=== PATIENT | female | born 1945 | race Caucasian/White ===

== ENCOUNTER 2023-03-09 13:47 | Outpatient (REF) | payer BC, SELFPAY ==
[2023-03-09 14:29] LABS: Hematocrit 39.3 % (37.0-47.0); Hemoglobin 12.9 g/dl (12.0-16.0); Mean Corpuscular HGB Conc 32.8 g/dl (31.0-35.0); Mean Corpuscular Volume 97.5 fL (80.0-98.0); Mean Platelet Volume 9.8 fL (9.4-12.3); Platelet Count 382 X10*3/uL (160-400); Red Blood Count 4.03 X10*6/uL (4.20-5.50); Red Cell Distribution Width 12.7 % (11.0-16.0); White Blood Count 6.2 X10*3/uL (4.8-10.8)
[2023-03-09 16:09] LABS: Alanine Aminotransferase 20 U/L (0-31); Albumin Level 3.8 g/dL (3.5-5.0); Alkaline Phosphatase 86 U/L (39-117); Anion Gap 14 (12-20); Aspartate Amino Transferase 18 U/L (5-31); Bilirubin Direct 0.1 mg/dL (0.0-0.5); Bilirubin Total 0.4 mg/dL (0.0-1.0); Blood Urea Nitrogen 9 mg/dL (9-16); Calcium 9.1 mg/dL (8.4-10.2); Carbon Dioxide 25 mmol/L (22-29); Chloride 103 mmol/L (96-108); Estimated Glomerular Filt Rate > 60; Glucose Random 118 mg/dL (60-115); Potassium 4.5 mmol/L (3.3-5.1); Sodium 137 mmol/L (135-145); Total Protein 6.5 g/dL (6.5-8.0)
[2023-03-09 16:25] LABS: Thyroid Stimulating Hormone 0.51 uIU/mL (0.32-4.0)
[2023-03-14 08:34] LABS: Levetiracetam Keppra 78.1 mcg/mL (6.0-46.0)
== END 2023-03-09 13:48 | disposition home or self-care (01) ==
LOC: HO.LAB 13:47
PROVIDERS: PCP Internal Medicine; Visit Provider Psychiatry & Neurology Neurology
DX: R63.4 Abnormal weight loss (principal); E03.9 Hypothyroidism, unspecified; G40.209 Localization-related (focal) (partial) symptomatic epilepsy and epileptic syndromes with complex partial seizures, not intractable, without status epilepticus; Z79.899 Other long term (current) drug therapy
CPT/HCPCS: 36415; 80048; 80076; 80177; 84443; 85027

== ENCOUNTER 2023-08-14 09:45 | Outpatient (AMB) | payer BC, SELFPAY ==
--- NOTE | 2023-08-14 09:46 | MHC.PC.OV ---
Vital Signs 08/14/23 09:47 Height 5 ft 6 in Weight 92 lb BMI 14.8 BP 96/50 L Blood Pressure Location Lt brachial Position Sitting Pulse 60 Pulse Source Pulse Oximeter Pulse Oximetry (%) 96 Oxygen Delivery Method Room Air Intake Visit Reasons: Re-establish Care/ Discuss Referrals Allergies No Known Allergies Allergy (Verified 08/14/23 10:05) Medication List - Last Reconciled 08/14/23 by PRASANNA Sánchez lacosamide (Vimpat) 100 mg PO BID levetiracetam Patient 750mg qam, and 1,500mg at night levothyroxine 88 mcg PO DAILY Tobacco use date assessed: 08/14/23 Fall risk assessment: 1 Fall in past year Last assessed Fall Risk: 08/14/23 Dental Screening Dental Screen Date: 08/14/23 Did you have a dental visit in the last 12 months?: Yes Did you have a dental problem in the last 6 months where you did not have access to dental care?: No Was dental information given to patient?: Patient has dentist HPI HPI Comments History of Present Illness Details 78-year-old female new [facility] Previous patient of Dr. De Los Santos last seen years ago. Past medical history significant for hypothyroid, osteoporosis, seizure disorder and pacemaker. Patient presents today with her daughter in law. Patients daughter in law reports weight loss patient reports when she saw Dr. Hill she was 97 lb in the beginning of June and at was [address] Hill reduced her levothyroxine to 88 mcg daily. Patient reports only eats 2 meals a day that consists of cereal with blueberries and the TV dinner at nighttime. Patient encouraged to eat 3 meals a day and [id number] states they are in the process or if looking into services such as Meals on wheels for patient and patient drinks 1 ensure daily. Patient currently following with Dr. Hill for history of seizures, last reported seizure 1 year ago. Patient follows with rubberizing mechanic at [facility]. Patient also reports suffered mechanical fall in June for which she suffered pelvic fractures and L3 compression fracture. Past medical history significant for osteoporosis has not had a bone density screening in many years. Bone density ordered. Colonoscopy completed [place] [address] Venegas showed fragments of tubular adenoma; referral entered for repeat colonoscopy screening. Offered referral for mammogram however patient declined mammogram screening. Tdap current administered in 2015. Patient refused flu shot. 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 Complete fasting blood work ordered [facility] Medical History (Updated 08/14/23 @ 10:44 by PRASANNA Sánchez) Blindness of left eye Multiple fractures of pelvis Compression fracture of L3 vertebra Surgical History History of permanent cardiac pacemaker placement History of rectal polypectomy History of tonsillectomy Family History (Updated 08/14/23 @ 10:13 by PRASANNA Sánchez) Father Pancreatic cancer Mother Alcoholism Son Celiac disease Social History (Updated 08/14/23 @ 10:14 by PRASANNA Sánchez) Housing: House Alcohol intake: never Patient Tobacco Use Status: Never used Tobacco Current occupational status: retired Cognitive needs: No Hearing needs: No Vision needs: No Questionnaire PHQ-9 Over the last 2 weeks, how often have you been bothered by any of the following problems? 1. Little interest or pleasure in doing things: not at all 2. Feeling down, depressed, or hopeless: not at all 3. Trouble falling or staying asleep, or sleeping too much: not at all 4. Feeling tired or having little energy: not at all 5. Poor appetite or overeating: not at all 6. Feeling bad about yourself - or that you are a failure or have let yourself or your family down: not at all 7. Trouble concentrating on things, such as reading the newspaper or watching television: not at all 8. Moving or speaking so slowly that other people could have noticed. Or the opposite - being so fidgety or restless that you have been moving around a lot more than usual: not at all 9. Thoughts that you would be better off or of hurting yourself in some way: not at all Total score: 0 Source: Developed by Drs. Nitesh Lopez, Leila Aguilar, David Lu and colleagues, with an educational misty from [employer]. Thrive Questionnaire Date Thrive assessed: 08/14/23 I am a: Patient What is your living situation today?: I have a steady place to live Within the past 12 months, did the food you bought not last and you didn't have the money to get more?: Never true Within the past 12 months, did you worry whether your food would run out before you got money to buy more?: Never true Do you have trouble paying for medicines?: No Do you have trouble getting transportation to medical appointments?: No Do you have trouble paying your heating and electricity bill?: No Do you have trouble taking care of your child, family member or friend?: No Do you have trouble with day-to-day activities such as bathing, preparing meals, shopping, managing finances, etc.?: No Are you currently unemployed and looking for a job?: No Are you interested in more education?: No Please select the resources that you would like help with: None AUDIT C Alcohol Use Questionnaire (AUDIT-C) 1. How often do you have a drink containing alcohol?: Never Total Score: 0 HUONG-7 AMB Questionnaire HUONG-7 Date HUONG - 7 assessed: 08/14/23 Feeling nervous, anxious, or on edge: 0 = Not at all Not being able to stop or control worryin = Not at all Worrying too much about different things: 0 = Not at all Trouble relaxin = Not at all Being so restless that it is hard to sit still: 0 = Not at all Becoming easily annoyed or irritable: 0 = Not at all Feeling afraid as if something awful might happen: 0 = Not at all Total HUONG-7 score (0-4 normal; 5-9 mild; 10-14 moderate; 15-21 severe): 0 Source: Developed by Drs. Nitesh Lopez, Leila Aguilar, David Lu and colleagues, with an educational misty from [employer]. Review of Systems Const Denies chills, Denies fatigue, Denies fever(s) and Denies poor appetite Eyes Denies no additional complaints ENT Reports Normal hearing present Card Denies chest pain, Denies syncope, Denies rapid heart rate and Denies dyspnea Resp Denies cough and Denies dyspnea GI Denies change in stool character, Denies constipation, Denies diarrhea, Denies nausea and Denies vomiting Denies urinary frequency, Denies dysuria and Denies urinary urgency Neuro Reports Normal hearing present, Denies confusion and Denies syncope Psych Denies confusion Endo Denies fatigue Physical exam (Primary Care) Vital Signs: Last Vital Signs Pulse 60 08/14/23 09:47 BP 96/50 L 08/14/23 09:47 Pulse Ox 96 08/14/23 09:47 Oxygen Delivery Method Room Air 08/14/23 09:47 BMI result Body Mass Index 14.8 Tobacco/Smoking Status: Tobacco use Status Tobacco use date assessed 08/14/23 08/14/23 09:58 Patient Tobacco Use Status Never used Tobacco 08/14/23 10:14 PHQ-9: PHQ-9 Score PHQ-9: Total score 0 08/14/23 10:14 Thrive Assessment: Date of Thrive Assessment Date Thrive assessed 08/14/23 08/14/23 09:58 Const General: No confusion Orientation/consciousness: No confusion HENMT Head: Yes normocephalic and Yes atraumatic Ears: external ears normal and TM's normal bilaterally General nose exam: Normal external nose present and Normal nasal mucous membranes and turbinates present Face and sinus: Yes normal facial exam and Yes sinuses nontender Mouth: moist mucous membranes Throat: Yes tonsils normal Eyes Conjunctivae: conjunctivae normal Sclerae: sclerae normal Pupils: Equal, round and reactive pupils present and Pupils normal by confrontation EOM: EOMs intact bilaterally Direct Ophthalmoscopy: normal light reflex Neck Neck: Yes no lymphadenopathy and Yes supple Thyroid: Thyroid normal Chest Chest palpation & inspection: normal inspection of the chest Resp Effort & Inspection: normal respiratory effort Auscultation: clear to auscultation bilaterally, no crackles, no rhonchi and no wheezes Cardio Rate: regular rate Rhythm: regular rhythm Heart sounds: S1 normal heart sound present and S2 normal heart sound present Peripheral pulses: dorsalis pedis present GI Inspection: Yes normal to inspection Palpation (GI): Soft to palpation, nontender and No hepatosplenomegaly present Auscultation: normoactive bowel sounds General: Yes no CVA tenderness Back/Spine/Pelvis Back: no CVA tenderness Skin General skin exam: no rashes or lesions noted Neuro General: No confusion Cranial nerves: Yes Equal, round and reactive pupils present and Yes Normal hearing present Cognition (Neuro): normal cognition Gait exam (Neuro): Normal gait present Motor exam (neuro): 5/5 motor strength present throughout Deep tendon reflexes (DTR's): Right brachioradialis reflex intensity grade: 2+, Left brachioradialis reflex intensity grade: 2+, Right patellar reflex intensity grade: 2+ and Left patellar reflex intensity grade: 2+ Extrem General: No edema Assessment and Plan Assessment & Plan (1) Osteoporosis: Code(s): M81.0 - Age-related osteoporosis without current pathological fracture Plan: Bone density screening ordered (2) Hypothyroidism: Code(s): E03.9 - Hypothyroidism, unspecified Plan: Continue on 88 mcg daily of levothyroxine. TSH ordered. (3) Seizure: Code(s): R56.9 - Unspecified convulsions Plan: Continue on current medications. Continue to follow with (4) Physical exam, annual: Code(s): Z00.00 - Encounter for general adult medical examination without abnormal findings Plan: Follow-up in 1 year (5) Malnourished: Code(s): E46 - Unspecified protein-calorie malnutrition Plan: Patient encouraged to eat 3 meals a day. Continue to supplement with Ensure. Plan Follow-up in 3 months. Orders: Orders Complete Blood Count Auto Diff Today Z13.0 - Encounter for screening for diseases of the blood and blood-forming organs and certain disorders involving the immune mechanism Lipid Panel Today Z13.220 - Encounter for screening for lipoid disorders TSH reflex Free T4 Today Z13.29 - Encounter for screening for other suspected endocrine disorder Vitamin D 25-OH Total Today Z13.21 - Encounter for screening for nutritional disorder XR DEXA axial skeleton Today M81.0 - Age-related osteoporosis without current pathological fracture Comprehensive [place]. Panel Fast Today R56.9 - Unspecified convulsions UA CC w/rflx Micro + Cult Today R56.9 - Unspecified convulsions Referrals Gastroenterology Referral Z12.11 - Encounter for screening for malignant neoplasm of colon Coding Level of Care Code New Pt Prev Care >65yr (17515) Diagnoses Osteoporosis M81.0 Hypothyroidism E03.9 Seizure R56.9 Physical exam, annual Z00.00 Malnourished E46
[2023-08-14 09:47] VITALS: BP 96/50; PULSE 60; O2SAT 96; BMI 14.8
== END 2023-08-14 10:42 | disposition home or self-care (01) ==
PROVIDERS: PCP Internal Medicine; Visit Provider Nurse Practitioner Family
DX: Z00.00 Encounter for general adult medical examination without abnormal findings (principal); R56.9 Unspecified convulsions; E46 Unspecified protein-calorie malnutrition; M81.0 Age-related osteoporosis without current pathological fracture; E03.9 Hypothyroidism, unspecified
CPT/HCPCS: 99387

== ENCOUNTER 2023-08-21 09:31 | Outpatient (REF) | payer BC, SELFPAY ==
[2023-08-21 11:24] LABS: Appearance Urine Clear; Color Urine Yellow; Glucose Urine UA Negative (Negative); Leukocyte Esterase Urine Large (3+) (Negative); Nitrite Urine Negative (Negative); PH 7.5 (5.0-9.0); UMIC TRIGGER UACC YES; Urine Blood Trace (Negative); Urine Ketones Negative (Negative); Urine Protein Negative (Neg-Trace)
[2023-08-21 11:28] LABS: Bacteria Urine None Seen (None Seen); Hyaline Casts Urine 0-2 /LPF (0-2); UACC Culture Trigger YES
[2023-08-21 11:30] LABS: MANUAL DIFF FLAG NO
[2023-08-21 11:40] LABS: Basophils Absolute Auto 0.1 X10*3/uL (0.0-0.2); Basophils Percent Auto 2.2 % (0-2); Eosinophils Absolute Auto 0.2 X10*3/uL (0.0-0.4); Eosinophils Percent Auto 4.1 % (0-4); Hematocrit 40.2 % (37.0-47.0); Hemoglobin 13.2 g/dl (12.0-16.0); Imm Gran Abs Auto 0.01 X10*3/uL (0.00-0.03); Imm Gran Pct Auto 0.2 % (0.0-0.4); Lymphocytes Absolute Auto 1.3 X10*3/uL (1.2-4.9); Lymphocytes Percent Auto 27.2 % (20-40); Mean Corpuscular HGB Conc 32.8 g/dl (31.0-35.0); Mean Corpuscular Hemoglobin 31.7 pg (27.0-33.0); Mean Corpuscular Volume 96.6 fL (80.0-98.0); Mean Platelet Volume 10.6 fL (9.4-12.3); Monocytes Absolute Auto 0.7 X10*3/uL (0.1-1.2); Neutrophils Absolute Auto 2.5 x10*3/uL (2.0-8.3); Neutrophils Percent Auto 51.3 % (45-73); Platelet Count 365 X10*3/uL (160-400); Red Blood Count 4.16 X10*6/uL (4.20-5.50); Red Cell Distribution Width 12.8 % (11.0-16.0); White Blood Count 4.9 X10*3/uL (4.8-10.8)
[2023-08-21 12:09] LABS: Alanine Aminotransferase 20 U/L (0-31); Albumin Level 3.9 g/dL (3.5-5.0); Alkaline Phosphatase 122 U/L (39-117); Anion Gap 12 (12-20); Aspartate Amino Transferase 19 U/L (5-31); Bilirubin Total 0.7 mg/dL (0.0-1.0); Blood Urea Nitrogen 10 mg/dL (9-16); Calcium 9.8 mg/dL (8.4-10.2); Carbon Dioxide 26 mmol/L (22-29); Chloride 103 mmol/L (96-108); Cholesterol 165 mg/dL (<200); Estimated Glomerular Filt Rate > 60; Glucose Fasting 100 mg/dL (60-99); HDL Cholesterol 40 mg/dL (>40); LDL Cholesterol Calculated 105 mg/dL (<100); Potassium 4.2 mmol/L (3.3-5.1); Sodium 137 mmol/L (135-145); Total Protein 7.1 g/dL (6.5-8.0); Triglycerides 101 mg/dL (<150)
[2023-08-21 12:28] LABS: TSH reflex Free T4 0.27 uIU/mL (0.32-4.0); Vitamin D 25-OH Total 32.9 ng/mL (>30)
[2023-08-21 13:07] LABS: Free T4 (Free Thyroxine) 1.21 ng/dL (0.71-1.85)
== END 2023-08-21 09:32 | disposition home or self-care (01) ==
LOC: HO.WFDLDS 09:31
PROVIDERS: Visit Provider Nurse Practitioner Family
DX: Z13.21 Encounter for screening for nutritional disorder (principal); Z13.220 Encounter for screening for lipoid disorders; Z13.0 Encounter for screening for diseases of the blood and blood-forming organs and certain disorders involving the immune mechanism; Z13.29 Encounter for screening for other suspected endocrine disorder; R56.9 Unspecified convulsions; R82.90 Unspecified abnormal findings in urine
CPT/HCPCS: 36415; 80053; 80061; 81001; 82306; 84439; 84443; 85025; 87086

== ENCOUNTER 2023-09-28 12:31 | Outpatient (REF) | payer BC, SELFPAY ==
[2023-09-28 15:13] LABS: Folate 16.1 ng/mL (> or = 4.0); Vitamin B12 322 pg/mL (200-900)
[2023-09-29 13:38] LABS: Transglutaminase IgA 194.3 U/mL
[2023-09-30 17:44] LABS: Zinc 45 mcg/dL (60-130)
[2023-10-02 12:24] LABS: Endomysial IgA Antibody Positive (Negative)
[2023-10-02 12:34] LABS: Endomysial Titer 1:10 titer (<1:5)
== END 2023-09-28 12:32 | disposition home or self-care (01) ==
LOC: HO.LAB 12:31
PROVIDERS: PCP Internal Medicine; Visit Provider Physician Assistant
DX: D12.6 Benign neoplasm of colon, unspecified (principal); R19.7 Diarrhea, unspecified; R63.4 Abnormal weight loss; Z83.79 Family history of other diseases of the digestive system
CPT/HCPCS: 36415; 82607; 82746; 84630; 86231; 86364

== ENCOUNTER 2023-09-28 12:31 | Outpatient (AMB) | payer BC, SELFPAY ==
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
[2023-09-28 12:44] VITALS: BP 102/59; PULSE 63; BMI 14.9
== END 2023-09-28 13:37 | disposition home or self-care (01) ==
PROVIDERS: PCP Internal Medicine; Visit Provider Physician Assistant
DX: D12.6 Benign neoplasm of colon, unspecified (principal); Z12.11 Encounter for screening for malignant neoplasm of colon; Z83.79 Family history of other diseases of the digestive system; R63.4 Abnormal weight loss
CPT/HCPCS: 99204

== ENCOUNTER 2023-10-21 13:10 | Outpatient (REF) | payer BC, SELFPAY ==
--- NOTE | ~2023-10-21 | MM_ITS ---
EXAMINATION: BONE DENSITOMETRY CLINICAL INDICATION: Age-related osteoporosis without current pathological fracture. COMPARISON: Baseline BD dated 12/24/2007. TECHNIQUE: Using a [employer] DXA System (software version: 13.1) manufactured by [employer], dual-energy x-ray absorptiometry was performed of the lumbar spine and left hip. The images are of good technical quality. Summary results are attached. FINDINGS: LEFT FEMUR, NECK: Current: BMD 0.525 g/cm2, Z-score -1.2, T-score -3.7, osteoporosis. Baseline: BMD 0.706 g/cm2. LEFT FEMUR, TOTAL: Current: BMD 0.503 g/cm2, Z-score -1.7, T-score -4.0, osteoporosis, 29.7% decrease from baseline (<5% change is not significant). Baseline: BMD 0.715 g/cm2. AP SPINE L1-L3 (excluding L4): The data of L1-L4 has been changed to exclude the L4 vertebral body, because degenerative sclerosis at this level may cause overestimation of lumbar spine density. Current: BMD 0.609 g/cm2, Z-score -2.2, T-score -4.7, osteoporosis, 25.8% decrease from baseline (<5% change is not significant). Baseline: BMD 0.821 g/cm2. IDENTIFIED RISK FACTORS: Menopause, osteoporosis, height loss, history of fracture (adult), low body weight, low calcium intake. HISTORY OF FRACTURE: Pelvis. MEDICATIONS: Multivitamins. MM/XR DEXA axial skeleton IMPRESSION: 1. DIAGNOSIS: Severe osteoporosis based on the lowest T-score value of -4.7 in the lumbar spine and history of fracture applying World Health Organization criteria. 2. 10-YEAR FRACTURE RISK PREDICTION, FRAX: According to the guidelines, FRAX calculation should only be performed on patients in the osteopenia bone density category. Therefore, FRAX was not performed on this patient. 3. Treatment Recommendations: NOF guidelines recommend consideration for treatment in postmenopausal women and men age 50 and older presenting with the following: -A hip or vertebral (clinical or morphometric) fracture. -T-score less than or equal to -2.5 at the femoral neck or spine after appropriate evaluation to exclude secondary causes. -Low bone mass at the hip or spine and a 10-year fracture probability by FRAX of greater than or equal to 3% for hip fracture or greater than or equal to 20% for major osteoporotic fracture based on the [place] adapted WHO algorithm. 4. Other Recommendations: All treatment decisions require clinical judgment and consideration of individual patient factors, including patient preferences, comorbidities, previous drug use, risk factors not captured in the FRAX model (e.g. frailty, falls, vitamin D deficiency, increased bone turnover, interval significant decline in bone density) and possible under or overestimation of fracture risk by FRAX. Additional medical evaluation for secondary cause of low bone mineral density may be appropriate. FUTURE SCAN RECOMMENDATION: People with diagnosed cases of osteoporosis or at high risk for fracture should have regular bone mineral density tests. For patients eligible for Medicare, routine testing is allowed once every 2 years. The testing frequency can be increased to one year for patients who have rapidly progressing disease, those who are receiving or discontinuing medical therapy to restore bone mass, or have additional risk factors.
== END 2023-10-21 13:11 | disposition home or self-care (01) ==
LOC: HO.MAMMO 13:10
PROVIDERS: PCP Nurse Practitioner Family; Visit Provider Nurse Practitioner Family
DX: Z13.820 Encounter for screening for osteoporosis (principal); M81.0 Age-related osteoporosis without current pathological fracture; Z78.0 Asymptomatic menopausal state
CPT/HCPCS: 77080

== ENCOUNTER 2023-11-09 12:18 | Outpatient (AMB) | payer BC, SELFPAY ==
[2023-11-09 12:22] VITALS: BP 85/46; PULSE 60; BMI 15.7
--- NOTE | 2023-11-09 12:22 | MHC.OFFVIS ---
Intake Vital Signs 11/09/23 12:22 Height 5 ft 6 in Weight 97 lb 0.054 oz BMI 15.7 BP 85/46 L Blood Pressure Location Lt brachial Position Sitting Pulse 60 Intake Visit Reasons: 1 month follow up Intake Note: Richa presents in 1 month follow up of labs and to discuss colonoscopy screening. CC: Patient denies having any GI symptoms today. Compensation And Benefits Analyst Required: No Allergies No Known Allergies Allergy (Verified 11/09/23 12:25) Medication List - Last Reconciled 11/09/23 by Kathleen Tolentino PA-C bisacodyl (Dulcolax (bisacodyl)) 20 mg (4 x 5 mg) PO ONCE 1 day lacosamide 100 mg PO ONCE levetiracetam 750 mg PO DAILY levothyroxine 75 mcg PO DAILY polyethylene glycol 3350 (Miralax) 238 grams PO ONCE 1 day HPI HPI Comments History of Present Illness Details Son present- he says she does not follow through- A 78-year-old depressed, thin, female seen last month had presented with weight loss, memory loss, poor appetite accompanied by her son She had another son that had with complications from celiac disease per her report= has well as a son that has celiac disease We had begun her on mirtazapine in hopes that would help with depression as well as with weight- She DID NOT-take it. labs have been done- celiac markers elevated, discussed with patient schedule her for EGD colonoscopy. Patient unfortunately canceled. Lyn11/02/23- seen by cardiology-Honey Sprague-okay to have colonoscopy A she says that her appetite is still not great-she does live alone her son lives next door however she is alone at mealtime Her bowels normal she has not had any issues She does admit to some memory loss however denies depression She has no nausea, vomiting abdominal pain diarrhea fever chills hematemesis or hematochezia PFS Medical History Blindness of left eye Multiple fractures of pelvis Compression fracture of L3 vertebra Surgical History History of esophagogastroduodenoscopy (EGD) Hx of colonoscopy History of permanent cardiac pacemaker placement History of rectal polypectomy History of tonsillectomy Family History (Updated 09/28/23 @ 13:13 by Kathleen Tolentino PA-C) Father Pancreatic cancer Mother Alcoholism Son Celiac disease Social History Housing: House Alcohol intake: never Patient Tobacco Use Status: Never used Tobacco Current occupational status: retired Cognitive needs: No Hearing needs: No Vision needs: No Review of Systems Const Details: All systems reviewed are negative All systems reviewed & are unremarkable except as noted in HPI and below Card Denies chest pain and Denies dyspnea Resp Denies dyspnea GI Denies abdominal pain, Denies nausea and Denies vomiting Psych Denies anxiety and Denies depression Physical Exam Vital Signs: Last Vital Signs Pulse 60 11/09/23 12:22 BP 85/46 L 11/09/23 12:22 BMI result Body Mass Index 15.7 Const Nutritional Appearance: underweight Orientation/consciousness: patient oriented x3 Eyes Other: os Resp Effort & Inspection: normal respiratory effort and able to speak in complete sentences Neuro General: patient oriented x3 Psych Speech and movement: Clear speech present Affect: Anxious affect present Attitude: Avoids eye contact (attititude/behavior) Thought process: Flight of ideas present Thought content: suicidality and no homicidality Results Reviewed Results Reviewed: 11/02/23 reviewed cardiology note Reviewed labs Assessment & Plan Assessment & Plan (1) Weight loss: Comment: eats very little- may likely be functional/ depression- Code(s): R63.4 - Abnormal weight loss (2) Tubular adenoma of colon: Comment: 2014 Code(s): D12.6 - Benign neoplasm of colon, unspecified Plan: Overdue for polyp surveillance colonoscopy (3) Family history of celiac disease: Comment: 2 sons 1, @ 43 Code(s): Z83.79 - Family history of other diseases of the digestive system (4) Malnourished: Comment: Depression Refused mirtazapine Code(s): E46 - Unspecified protein-calorie malnutrition Plan: Reinforced importance good nutrition Hydrated (5) Depression: Comment: of son, moved from family home, lives alone, however son next door does not seem to family julian, May benefit from psychotherapy Declined mirtazapine-was hoping to help with depression as well as weight gain Son present, not engaged-encouraged to oversee- Code(s): F32.A - Depression, unspecified Plan: Follow-up PCP depression Plan EGD/ colon-Dr. Putnam MG prep-already has it 11/02/23- seen by cardiology-Honey Sprague-okjennifer to have colonoscop Patient Instructions: 78-year-old female strong family history celiac disease, weight loss, depression-had been scheduled for urgent EGD colonoscopy however she did not follow through. Reinforced importance of follow through with EGD colonoscopy son is present there are no major barriers to understanding identify EGD and colonoscopy indications, procedure need for escort reviewed. MiraLax Gatorade prep reviewed literature given Encouraged to call with any questions concerns Coding Level of Care Code Est Pt Level 4 (62939) Diagnoses Weight loss R63.4 Tubular adenoma of colon D12.6 Family history of celiac disease Z83.79 Malnourished E46 Depression F32.A Time Spent (min) 30 Comment Son present
== END 2023-11-09 13:08 | disposition home or self-care (01) ==
PROVIDERS: PCP Internal Medicine; Visit Provider Physician Assistant
DX: R63.4 Abnormal weight loss (principal); D12.6 Benign neoplasm of colon, unspecified; Z83.79 Family history of other diseases of the digestive system; E46 Unspecified protein-calorie malnutrition; F32.A Depression, unspecified
CPT/HCPCS: 99214

== ENCOUNTER → 2023-11-09 12:18 | Outpatient (BNVA) | payer BC, SELFPAY | PROVIDERS: PCP Internal Medicine; Visit Provider Physician Assistant ==

== ENCOUNTER 2023-11-12 09:32 | Outpatient (AMB) | payer BC, SELFPAY ==
[2023-11-12 09:34] VITALS: BP 88/50; PULSE 60; O2SAT 97; BMI 15.5
--- NOTE | 2023-11-12 09:34 | MHC.PC.OV ---
Vital Signs 11/12/23 09:34 Height 5 ft 6 in Weight 96 lb 4 oz BMI 15.5 BP 88/50 L Blood Pressure Location Lt brachial Position Sitting Pulse 60 Pulse Source Pulse Oximeter Pulse Oximetry (%) 97 Oxygen Delivery Method Room Air Intake Visit Reasons: hypothyroidism follow up Commercial Truck Driver Required: No Binding End Stitcher: Present Allergies No Known Allergies Allergy (Verified 11/12/23 09:34) Medication List - Last Reconciled 11/12/23 by Marbin De Los Santos MD bisacodyl (Dulcolax (bisacodyl)) 20 mg (4 x 5 mg) PO ONCE 1 day lacosamide 100 mg PO ONCE levetiracetam 750 mg PO DAILY levothyroxine 75 mcg PO DAILY polyethylene glycol 3350 (Miralax) 238 grams PO ONCE 1 day Tobacco use date assessed: 11/12/23 Fall risk assessment: No Falls in past year Last assessed Fall Risk: 11/12/23 Dental Screening Dental Screen Date: 11/12/23 Did you have a dental visit in the last 12 months?: Yes Did you have a dental problem in the last 6 months where you did not have access to dental care?: No Was dental information given to patient?: Patient has dentist HPI hypothyroidism follow up HPI Details hypothyroidism celiac disease and Sz disorder; stable; thyroid was adjusted recently [facility] Medical History Blindness of left eye Multiple fractures of pelvis Compression fracture of L3 vertebra Surgical History History of esophagogastroduodenoscopy (EGD) Hx of colonoscopy History of permanent cardiac pacemaker placement History of rectal polypectomy History of tonsillectomy Family History Father Pancreatic cancer Mother Alcoholism Son Celiac disease Social History Housing: House Alcohol intake: never Patient Tobacco Use Status: Never used Tobacco Current occupational status: retired Cognitive needs: No Hearing needs: No Vision needs: No Questionnaire PHQ-9 Over the last 2 weeks, how often have you been bothered by any of the following problems? 1. Little interest or pleasure in doing things: not at all 2. Feeling down, depressed, or hopeless: not at all 3. Trouble falling or staying asleep, or sleeping too much: not at all 4. Feeling tired or having little energy: not at all 5. Poor appetite or overeating: not at all 6. Feeling bad about yourself - or that you are a failure or have let yourself or your family down: not at all 7. Trouble concentrating on things, such as reading the newspaper or watching television: not at all 8. Moving or speaking so slowly that other people could have noticed. Or the opposite - being so fidgety or restless that you have been moving around a lot more than usual: not at all 9. Thoughts that you would be better off or of hurting yourself in some way: not at all Total score: 0 Source: Developed by Drs. Nitesh Lopez, Leila Aguilar, David Lu and colleagues, with an educational misty from [employer]. Thrive Questionnaire Date Thrive assessed: 11/12/23 I am a: Patient What is your living situation today?: I have a steady place to live Within the past 12 months, did the food you bought not last and you didn't have the money to get more?: Never true Within the past 12 months, did you worry whether your food would run out before you got money to buy more?: Never true Do you have trouble paying for medicines?: No Do you have trouble getting transportation to medical appointments?: No Do you have trouble paying your heating and electricity bill?: No Do you have trouble taking care of your child, family member or friend?: No Do you have trouble with day-to-day activities such as bathing, preparing meals, shopping, managing finances, etc.?: No Are you currently unemployed and looking for a job?: No Are you interested in more education?: No Please select the resources that you would like help with: None AUDIT C Alcohol Use Questionnaire (AUDIT-C) 1. How often do you have a drink containing alcohol?: Never Total Score: 0 HUONG-7 AMB Questionnaire HUONG-7 Date HUONG - 7 assessed: 11/12/23 Feeling nervous, anxious, or on edge: 0 = Not at all Not being able to stop or control worryin = Not at all Worrying too much about different things: 0 = Not at all Trouble relaxin = Not at all Being so restless that it is hard to sit still: 0 = Not at all Becoming easily annoyed or irritable: 0 = Not at all Feeling afraid as if something awful might happen: 0 = Not at all Total HUONG-7 score (0-4 normal; 5-9 mild; 10-14 moderate; 15-21 severe): 0 Source: Developed by Drs. Nitesh Lopez, Leila Aguilar, David Lu and colleagues, with an educational misty from [employer]. Review of Systems Const Denies chills, Denies headache(s) and Denies weight loss ENT Denies headache(s) Card Denies chest pain, Denies syncope, Denies irregular heart rhythm and Denies dyspnea Resp Denies chest congestion, Denies cough and Denies dyspnea GI Denies abdominal pain, Denies change in stool character, Denies nausea and Denies vomiting Musc Denies deformity and Denies joint swelling Neuro Denies syncope and Denies headache(s) Physical exam (Primary Care) Vital Signs: Last Vital Signs Pulse 60 11/12/23 09:34 BP 88/50 L 11/12/23 09:34 Pulse Ox 97 11/12/23 09:34 Oxygen Delivery Method Room Air 11/12/23 09:34 BMI result Body Mass Index 15.5 Tobacco/Smoking Status: Tobacco use Status Tobacco use date assessed 11/12/23 11/12/23 09:35 Patient Tobacco Use Status Never used Tobacco 11/12/23 09:35 PHQ-9: PHQ-9 Score PHQ-9: Total score 0 11/12/23 09:35 Thrive Assessment: Date of Thrive Assessment Date Thrive assessed 11/12/23 11/12/23 09:35 Const General: cooperative, comfortable, no acute distress and alert Neck Neck: Yes no lymphadenopathy Thyroid: Thyroid normal Resp Effort & Inspection: normal respiratory effort Auscultation: clear to auscultation bilaterally Percussion: percussion normal Cardio Jugular venous distension: no JVD Palpation: normal PMI Rate: regular rate Rhythm: regular rhythm Heart sounds: S1 normal heart sound present and S2 normal heart sound present GI Inspection: Yes normal to inspection Palpation (GI): No hepatosplenomegaly present Skin General skin exam: no rashes or lesions noted Extrem General: Yes no clubbing, cyanosis or edema Assessment and Plan Assessment & Plan (1) Seizure: Code(s): R56.9 - Unspecified convulsions Plan: per neurology (2) Hypothyroidism: Code(s): E03.9 - Hypothyroidism, unspecified Plan: recheck labs (3) Celiac disease: Code(s): K90.0 - Celiac disease Plan: as per gi Orders: Orders Lipid Panel Today E78.5 - Hyperlipidemia, unspecified Thyroid Stimulating Hormone Today E03.9 - Hypothyroidism, unspecified Complete Blood Count Auto Diff Today D64.9 - Anemia, unspecified Comprehensive [place]. Panel Fast Today N28.9 - Disorder of kidney and ureter, unspecified Coding Level of Care Code Est Pt Level 4 (83964) Diagnoses Seizure R56.9 Hypothyroidism E03.9 Celiac disease K90.0
== END 2023-11-12 10:04 | disposition home or self-care (01) ==
PROVIDERS: PCP Internal Medicine; Visit Provider Internal Medicine
DX: R56.9 Unspecified convulsions (principal); E03.9 Hypothyroidism, unspecified; K90.0 Celiac disease
CPT/HCPCS: 99214

== ENCOUNTER 2023-11-20 11:39 | Outpatient (REF) | payer BC, SELFPAY ==
[2023-11-20 14:25] LABS: MANUAL DIFF FLAG NO
[2023-11-20 14:50] LABS: Basophils Absolute Auto 0.1 X10*3/uL (0.0-0.2); Basophils Percent Auto 2.5 % (0-2); Eosinophils Absolute Auto 0.2 X10*3/uL (0.0-0.4); Eosinophils Percent Auto 4.4 % (0-4); Hematocrit 39.7 % (37.0-47.0); Hemoglobin 12.8 g/dl (12.0-16.0); Imm Gran Abs Auto 0.01 X10*3/uL (0.00-0.03); Imm Gran Pct Auto 0.2 % (0.0-0.4); Lymphocytes Absolute Auto 1.3 X10*3/uL (1.2-4.9); Lymphocytes Percent Auto 24.4 % (20-40); Mean Corpuscular HGB Conc 32.2 g/dl (31.0-35.0); Mean Corpuscular Volume 99.3 fL (80.0-98.0); Monocytes Absolute Auto 0.8 X10*3/uL (0.1-1.2); Monocytes Percent Auto 15.2 % (2-11); Neutrophils Absolute Auto 2.8 x10*3/uL (2.0-8.3); Neutrophils Percent Auto 53.3 % (45-73); Platelet Count 415 X10*3/uL (160-400); Red Cell Distribution Width 13.2 % (11.0-16.0); White Blood Count 5.3 X10*3/uL (4.8-10.8)
[2023-11-20 15:16] LABS: Alanine Aminotransferase 25 U/L (0-31); Albumin Level 3.7 g/dL (3.5-5.0); Alkaline Phosphatase 87 U/L (39-117); Anion Gap 10 (12-20); Aspartate Amino Transferase 19 U/L (5-31); Bilirubin Total 0.6 mg/dL (0.0-1.0); Blood Urea Nitrogen 12 mg/dL (9-16); Calcium 9.3 mg/dL (8.4-10.2); Carbon Dioxide 30 mmol/L (22-29); Chloride 103 mmol/L (96-108); Cholesterol 175 mg/dL (<200); Estimated Glomerular Filt Rate > 60; Glucose Fasting 91 mg/dL (60-99); HDL Cholesterol 52 mg/dL (>40); LDL Cholesterol Calculated 106 mg/dL (<100); Potassium 4.4 mmol/L (3.3-5.1); Sodium 139 mmol/L (135-145); Total Protein 6.8 g/dL (6.5-8.0); Triglycerides 88 mg/dL (<150)
[2023-11-20 15:31] LABS: Thyroid Stimulating Hormone 1.08 uIU/mL (0.32-4.0)
== END 2023-11-20 11:40 | disposition home or self-care (01) ==
LOC: HO.WFDLDS 11:39
PROVIDERS: Visit Provider Internal Medicine
DX: N28.9 Disorder of kidney and ureter, unspecified (principal); E03.9 Hypothyroidism, unspecified; D64.9 Anemia, unspecified; E78.5 Hyperlipidemia, unspecified
CPT/HCPCS: 36415; 80053; 80061; 84443; 85025

== ENCOUNTER 2023-12-31 09:03 | Day surgery (SDC) | payer BC, SELFPAY ==
[2023-12-29 13:52] VITALS: BMI 15.7
--- NOTE | 2023-12-30 08:54 | P.CONAN_ITS ---
Documented by User: Melinda Marcum NP 12/30/23 08:59 HPI - Anesthesia Eval Consult details Narrative: 78yo F for Upper Endoscopy and Colonoscopy Pacer in situ [place] (SSS) Afib - declines anticoag d/t seizure ds and bleeding risk Follows [facility] cardiology. Last office visit 10/2023 [facility] Active Problems Active Problems: All Active Problems (Updated 12/29/23 @ 13:50 by Trupti Martines RN) Celiac disease (Acute) Depression (Acute) Weight loss (Acute) Family history of celiac disease (Acute) Encounter for screening colonoscopy (Acute) Tubular adenoma of colon (Acute) Malnourished (Acute) Osteoporosis (Acute) Seizure (Acute) Hypothyroidism (Acute) Past Medical History Medical History Sick sinus syndrome Paroxysmal atrial fibrillation Osteoporosis Hypothyroid Seizures Depression Blindness of left eye Multiple fractures of pelvis Compression fracture of L3 vertebra Family History Family History Father Pancreatic cancer Mother Alcoholism Son Celiac disease Surgical History Surgical History History of esophagogastroduodenoscopy (EGD) Hx of colonoscopy History of permanent cardiac pacemaker placement History of rectal polypectomy History of tonsillectomy Social History Social History Housing: House Alcohol intake: never Patient Tobacco Use Status: Never used Tobacco Use of substances other than those prescribed or required for medical reasons: No Are you DNR?: No Advance Directives: No Advance Directives Information Provided: Yes Current occupational status: retired Cognitive needs: No Hearing needs: No Vision needs: No Meds Allergies Allergy/AdvReac Type Severity Reaction Status Date / Time No Known Allergies Allergy Verified 12/31/23 09:26 Home Medications Medication Instructions Recorded Confirmed Last Taken Type lacosamide 100 mg tablet 100 mg PO BID 11/09/23 12/29/23 Unknown History levetiracetam 750 mg tablet 750 mg PO DAILY 11/09/23 12/29/23 Unknown History levetiracetam 750 mg tablet 1,500 mg PO BEDTIME 12/31/23 12/31/23 Unknown History Exam Height,Weight and Vital Signs: Height 5 ft 6 in Weight 43.998 kg Pertinent Lab Results Pertinent Lab Results: Laboratory Tests 11/20/23 11:40 WBC 5.3 Hgb 12.8 Hct 39.7 Plt Count 415 H Sodium 139 Potassium 4.4 Chloride 103 Carbon Dioxide 30 H BUN 12 Creatinine 0.58 Narrative Narrative: EKG 10/2023 A-paced rhythm Nonspecific T wave abn Pacer interr 10/2023 Nml lead and device function. Battery life 5.1 years. AP 67% and CLIENT SUPPORT REPRESENTATIVE 0.1%. AT/AF burden is <1% with 4 AMS episodes. Known PAF. Assessment and Plan Assessment Anesthesia Assessment: Chart Reviewed Documented by User: Rama Oliveira MD 12/31/23 10:03 [facility] Past Medical History Medical History Sick sinus syndrome Paroxysmal atrial fibrillation Osteoporosis Hypothyroid Seizures Depression Blindness of left eye Multiple fractures of pelvis Compression fracture of L3 vertebra Family History Family History Father Pancreatic cancer Mother Alcoholism Son Celiac disease Family history of problems with anesthesia: No Surgical History Surgical History History of esophagogastroduodenoscopy (EGD) Hx of colonoscopy History of permanent cardiac pacemaker placement History of rectal polypectomy History of tonsillectomy History of Problems with Anesthesia: No Social History Social History Housing: House Alcohol intake: never Patient Tobacco Use Status: Never used Tobacco Use of substances other than those prescribed or required for medical reasons: No Are you DNR?: No Advance Directives: No Advance Directives Information Provided: Yes Current occupational status: retired Cognitive needs: No Hearing needs: No Vision needs: No Meds Allergies Allergy/AdvReac Type Severity Reaction Status Date / Time No Known Allergies Allergy Verified 12/31/23 09:26 Home Medications Medication Instructions Recorded Confirmed Last Taken Type lacosamide 100 mg tablet 100 mg PO BID 11/09/23 12/29/23 Unknown History levetiracetam 750 mg tablet 750 mg PO DAILY 11/09/23 12/29/23 Unknown History levetiracetam 750 mg tablet 1,500 mg PO BEDTIME 12/31/23 12/31/23 Unknown History Exam Airway Mallampati Class: II TM Dist: >3cm Neck ROM: Limited Heart: afib, pacer , no spikes seen on strip Lungs: cta Assessment and Plan Assessment Anesthesia Assessment: Anesthesia Plan Discussed Final Anesthetic Review Family History of Problems with Anesthesia: No History of Problems with Anesthesia: No NPO: Yes ASA Class: III Final Preanesthetic Review: No Changes in Pt Med Stat, Meds/Allgs Chart Reviewed, Consent Obtained/Reviewed and Anes Risks/Benef Reviewed Patient Risk: Intermediate Procedure Risk: Low Anesthetic Plan Anesthetic Plan: MAC: Disposition: Standard PACU
[2023-12-31 09:24] VITALS: BMI 15.2
[2023-12-31 09:50] VITALS: BP 94/49; PULSE 67; RESP 16; TEMP 36.9; O2SAT 95
[2023-12-31] MEDS: Lactated Ringers 1,000 ML 100 ML IVCONT (10:08)
--- NOTE | 2023-12-31 10:13 | MHC.SHP ---
Pre-Procedural Eval Section A - 24 Hr Update-Section A only Date of Service: 12/31/23 Section B - Complete if H&P > 30 days Chief Complaint: benign neoplasm,hx other disease,abnormal wt loss Details of Present Illness: fh celiac disease Relevant Family History (Specify if Yes): Yes Relevant Social History: None Present Medications: see Short Stay Collaborative assessment Medical History: Significant History (Sick sinus syndrome Paroxysmal atrial fibrillation Osteoporosis Hypothyroid Seizures Depression Blindness of left eye Multiple fractures of pelvis Compression fracture of L3 vertebra) History of Previous Operations: Relevant previous surgery/procedure and date(s) (History of esophagogastroduodenoscopy (EGD) Hx of colonoscopy History of permanent cardiac pacemaker placement History of rectal polypectomy History of tonsillectomy) Allergies: Allergies Allergy/AdvReac Type Severity Reaction Status Date / Time No Known Allergies Allergy Verified 12/31/23 09:26 Review of Systems Sugical H&P ROS: Negative: Constitution, Cardiovascular, Respiratory, Neurological, Psychiatric, Hem-Onc, Allergic/Immunologic, Gastrointestinal, Genitourinary, Musculoskeletal, Integumentary, Endocrine and Eyes/Ears/Nose/Throat Exam Surgical H&P Exam: Normal: HEENT, Normal: Heart, Normal: Lungs, Normal: Extremities, Normal: Abdomen, Normal: Skin and Normal: Neurological Plan Diagnosis/Plan: Unchanged I have reviewed the history and physical and performed a pertinent physical examination on my patient. No changes have occurred unless specified. Time Spent With Patient Time: Total time managing care of this patient today ____ minutes.
--- NOTE | 2023-12-31 10:35 | W.PM.OPN ---
Operative Note Operative Note Date of Service: 12/31/23 Narrative: Operative Information Procedure Description: EGD, Colonoscopy Indication: weight loss, pos celiac Ab Anesthesia: MAC FLEXIBLE TRANSORAL UPPER GASTROINTESTINAL ENDOSCOPY AND COLONOSCOPY PROCEDURE NOTE UPPER ENDOSCOPY Consent: Indications for the procedure and potential complications of bleeding, perforation, reaction to medications and missed diagnosis were discussed with the patient and informed consent was obtained. Instrument: Olympus GIF H 190 J mid size upper endoscope Monitoring: Vital signs and clinical assessment, continuous EKG monitoring, Pulse oximetry, Carbon Dioxide monitoring and blood pressure monitoring were done throughout the procedure. Procedure: The patient was placed in the left lateral decubitis position and pre-procedure medications were administered and a bite block was placed. The endoscope was inserted into the mouth and advanced under direct vision to the third part of duodenum. A careful inspection was made as the upper endoscope was withdrawn including a retroflexed examination of the proximal stomach; Findings and interventions are described below. Findings: Larynx:normal Esophagus: GE junction at 36 cm, diaphragm hiatus at 36 cm, bogginess at GEJ, bx taken also from distal esophagus Stomach: scarring and erythema in mid and distal stomach. Biopsies were obtained. Grade 2 flap valve on retroflexed examination of the cardia. Duodenum: Bulbar duodenitis, bx taken incl for flow cytometry Intervention: Biopsies as noted above, COLONOSCOPY Instrument: Olympus variable stiffness pediatric scope 190L Colonoscopy Monitoring: Vital signs and clinical assessment, continuous EKG monitoring, Pulse oximetry, Carbon Dioxide monitoring and blood pressure monitoring were done throughout the procedure. Colon withdrawal time was 12 minutes. Procedure: The patient was placed in the left lateral decubitis position and pre-procedure medications were administered. After a digital rectal examination of the ano-rectum, the video colonoscope was inserted into the rectum and advanced through the colon to the cecum/TI. The colonoscope was slowly withdrawn in a retrograde panoramic fashion and the colon mucosa was carefully examined including a retroflexed view of the rectum. Findings and interventions are described below. Procedure Difficulty:moderate- pressure applied, v tortuous colon Findings: Terminal Ileum-normal, bx taken Random colon bx taken Cecum: 3-5 mm sessile polyps x 2 removed with cold forceps Ascending Colon: few scattered diverticula noted Transverse Colon -normal Descending Colon: scattered diverticula Sigmoid Colon: severe diverticulosis with mucosal thickening and narrowing of lumen Rectum: Retroflexion with small internal hemorrhoids, grade I Anorectum - normal Colon preparation: [place] Bowel Preparation Scale Right colon; 2 Transverse colon: 2 Left colon; 2 (0 = Unprepared colon segment with mucosa not seen due to solid stool that cannot be cleared. 1 = Portion of mucosa of the colon segment seen, but other areas of the colon segment not well seen due to staining, residual stool and/or opaque liquid. 2 = Minor amount of residual staining, small fragments of stool and/or opaque liquid, but mucosa of colon segment seen well. 3 = Entire mucosa of colon segment seen well with no residual staining, small fragments of stool or opaque liquid) Impression and Post Procedure Diagnosis: Endoscopy Findings: gastritis esophagitis duodenitis Colonoscopy Findings: diverticulosis colon polyps internal hemorrhoids Plan: Await Pathology results No further screening colonoscopy recommended due to age, High fiber diet leaflet avoid straining at stool, epsom salts and sitz bath, anusol supps or cream' if bx neg then CT A/P and chest to r/o malignancy Above findings were reviewed with the patient and relevant handouts were provided if indicated.
[2023-12-31 11:43] VITALS: BP 98/51; PULSE 60; RESP 18; TEMP 36.1; O2SAT 99
[2023-12-31 12:16] VITALS: BP 111/62; PULSE 60; RESP 16; TEMP 36.1; O2SAT 97
== END 2023-12-31 12:30 | disposition home or self-care (01) ==
PROVIDERS: PCP Internal Medicine; Visit Provider Internal Medicine Gastroenterology
PROC: (CPT 43239; principal; 2023-12-31 11:20)
DX: K29.70 Gastritis, unspecified, without bleeding (principal); K20.90 Esophagitis, unspecified without bleeding; K29.80 Duodenitis without bleeding; K22.89 Other specified disease of esophagus; R63.4 Abnormal weight loss; Z68.1 Body mass index [BMI] 19.9 or less, adult; Z12.11 Encounter for screening for malignant neoplasm of colon; K63.5 Polyp of colon; K57.30 Diverticulosis of large intestine without perforation or abscess without bleeding; K64.0 First degree hemorrhoids; K56.2 Volvulus; Z86.010 Personal history of colon polyps; Z83.79 Family history of other diseases of the digestive system; F32.A Depression, unspecified; E03.9 Hypothyroidism, unspecified; I48.0 Paroxysmal atrial fibrillation
CPT/HCPCS: 43239; 45380; 36415; 88184; 88185; 88300; 88305; 88312; 88313; 88342; J2704

== ENCOUNTER → 2023-12-31 09:03 | Outpatient (BNV) | payer BC, SELFPAY | PROVIDERS: PCP Internal Medicine; Visit Provider Internal Medicine Gastroenterology | DX: K20.90 Esophagitis, unspecified without bleeding (principal); K29.90 Gastroduodenitis, unspecified, without bleeding; K63.5 Polyp of colon; K57.90 Diverticulosis of intestine, part unspecified, without perforation or abscess without bleeding; K64.8 Other hemorrhoids | CPT/HCPCS: 43239; 45385 ==

== ENCOUNTER 2024-01-11 13:30 | Outpatient (AMB) | payer BC, SELFPAY ==
--- NOTE | 2024-01-11 13:38 | A.OFFVIS_ITS ---
Intake Vital Signs 01/11/24 13:43 Height 5 ft 6 in Weight 97 lb BMI 15.7 BP 87/51 L Blood Pressure Location Lt brachial Position Sitting Pulse 63 Intake Visit Reasons: s/p egd/colon Intake Note: Patient follow up for EGD/Colonoscopy results. Patient denies any GI issues. Purchasing Coordinator Required: No Accompanied by: Son Allergies No Known Allergies Allergy (Verified 01/11/24 13:37) HPI HPI Comments History of Present Illness Details A 79 y/o female fam hx celiac dz- f/u after EGD and colonoscopy for weight loss, she is here today with her son She admits that she does not eat much-she is depressed she is to work 3 jobs, [place] as well as the of 1 of her sons. She denies suicidal homicidal ideation Her bowels have been normal She has no nausea, vomiting hematemesis, hematochezia fever chills Reviewed procedure report, pathology and recommendation Opportunity for questions [facility] Medical History Sick sinus syndrome Paroxysmal atrial fibrillation Osteoporosis Hypothyroid Seizures Depression Blindness of left eye Multiple fractures of pelvis Compression fracture of L3 vertebra Surgical History History of esophagogastroduodenoscopy (EGD) Hx of colonoscopy History of permanent cardiac pacemaker placement History of rectal polypectomy History of tonsillectomy Family History Father Pancreatic cancer Mother Alcoholism Son Celiac disease Social History Housing: House Alcohol intake: never Patient Tobacco Use Status: Never used Tobacco Current occupational status: retired Cognitive needs: No Hearing needs: No Vision needs: No Review of Systems Const All systems reviewed & are unremarkable except as noted in HPI and below Card Denies chest pain and Denies dyspnea Resp Denies dyspnea GI Details: Not hungry Denies abdominal pain, Denies diarrhea, Denies nausea and Denies vomiting Psych Reports anxiety, Reports depression, Reports anhedonia, Denies homicidal ideation and Denies suicidal ideation Physical Exam Vital Signs: Last Vital Signs Pulse 63 01/11/24 13:43 BP 87/51 L 01/11/24 13:43 BMI result Body Mass Index 15.7 Const General: cooperative, comfortable, anxious and well groomed Nutritional Appearance: underweight Orientation/consciousness: patient oriented x3 Neuro General: patient oriented x3 Extrem General: Yes full ROM Psych Appearance: well kempt Speech and movement: Clear speech present Attitude: cooperative Thought process: Flight of ideas present Thought content: Normal thought content present Results Reviewed Results Reviewed: mpression and Post Procedure Diagnosis: Endoscopy Findings: gastritis esophagitis duodenitis Colonoscopy Findings: diverticulosis colon polyps internal hemorrhoids Plan: Await Pathology results No further screening colonoscopy recommended due to age, High fiber diet leaflet avoid straining at stool, epsom salts and sitz bath, anusol supps or cream' if bx neg then CT A/P and chest to r/o malignancy Name: Richa Zaldivar Age/Sex: 78/F Attending: Cindi Putnam MD : 1945 Submitted by: Cindi Putnam MD Copies to: Marbin De Los Santos MD MR #: [id number] Status: [facility] Collected: 12/31/23 Location: [facility] Received: 12/31/23 ADDENDUM REPORT Addendum Addendum #1 (A): Flow cytometry analysis ([employer]): Diagnosis: -Non-specific T-cell dominant profile. -Diagnostic features with B-cell lymphoproliferative disorder not seen. -No significant increase in blast-gait or [id number] events identified. See full report in the EMR - report/pathology section as a scanned report (camera icon). (C): Immunostain for H.pylori is negative with appropriate control. (F): Additional levels show colonic mucosa with lymphoid aggregates and no specific change; negative for adenomatous dysplasia. Electronically Signed By: Siria Reyes 01/05/24 1234 Diagnosis A. Duodenum, biopsy #1 for flow cytometry: Specimen sent for flow cytometry; report to follow. B. Duodenum, biopsy #2: Duodenal mucosa with predominantly preserved villi and focal features of chronic/non-specific duodenitis. C. Stomach, biopsy: Gastric body mucosa with minimal-mild chronic gastritis with rare neutrophils; negative for intestinal metaplasia and dysplasia (see comment). D. Gastroesophageal junction, biopsy: Squamocolumnar mucosa with mild chronic in flammation; negative for intestinal metaplasia and dysplasia. E. Esophagus, distal, biopsy: Squamous mucosa with no specific change; no columnar mucosa present. F. Colon, cecal polyp, biopsy: Colonic mucosa with lymphoid aggregates on initial levels (see comment). Patient: Richa Zaldivar Age/Sex: 78/F MR#: [id number] Page 1 of 3 G. Terminal ileum, biopsy: Ileal mucosa with no specific change. H. Colon, random, biopsy: Colonic mucosa with no specific change. Comment: Immunostain for H. pylori on C is pending; addendum to follow. Additional levels pending on F; addendum to follow. Clinical History Pre-Op Dx: Weight loss Post-Op Dx: Upper: gastritis, esophagitis, duodenitis; Lower: Diverticulosis, colon polyp, hemorrhoids Microscopic Description Microscopic sections reviewed. AB/PAS stain on B shows evidence of chronic injury. AB/PAS stains on C and D are negative for intestinal metaplasia. AB/PAS stain on E is negative for fungi. Controls stain appropriately. Material Received A. Duodenum bx's #1 for flow cytometry B. Duodenum bx's #2 C. Stomach bx's D. GE junction bx's E. Distal esophagus bx's F. Cecal polyp bx's G. Terminal ileum bx's H. Random colon bx's Gross Description Assessment & Plan Assessment & Plan (1) Weight loss: Comment: Extremely thin 79-year-old woman-seemingly depressed eats very little- may likely be functional/ depression-psychotherapy may be beneficial Son present-does not seem to engage-discussed mealtime, seems she is alone much of the time-he does not seem to be much involved Code(s): R63.4 - Abnormal weight loss Plan: Former smoker get chest X ray (2) Family history of celiac disease: Comment: 2 sons 1, @ 43 Code(s): Z83.79 - Family history of other diseases of the digestive system Plan: Abstain from gluten will recheck lab to compare Plan Phone Type [phone] Cell Orders: Orders XR chest 2V 01/11/24 R63.4 - Abnormal weight loss, Z87.891 - Personal history of nicotine dependence Gliadin Ab Panel 01/11/24 R63.4 - Abnormal weight loss Endomysial IgA rflx Titer 01/11/24 R63.4 - Abnormal weight loss Transglutaminase IgA 01/11/24 R63.4 - Abnormal weight loss Patient Instructions: Chest X ray Follow-up [id number] may be beneficial Will get labs to compare Coding Level of Care Code Est Pt Level 3 (82633) Diagnoses Weight loss R63.4 Family history of celiac disease Z83.79
[2024-01-11 13:43] VITALS: BP 87/51; PULSE 63; BMI 15.7
== END 2024-01-11 15:25 | disposition home or self-care (01) ==
PROVIDERS: PCP Internal Medicine; Visit Provider Physician Assistant
DX: R63.4 Abnormal weight loss (principal); Z83.79 Family history of other diseases of the digestive system
CPT/HCPCS: 99213

== ENCOUNTER 2024-01-11 13:30 | Outpatient (REF) | payer BC, SELFPAY ==
--- NOTE | ~2024-01-11 | XR_ITS ---
EXAMINATION: XR CHEST CLINICAL INFORMATION: Abnormal weight loss. COMPARISON: Chest radiograph dated 09/16/2012. TECHNIQUE: Frontal and lateral views of the chest were obtained. FINDINGS: The heart, great vessels, pulmonary vasculature and mediastinum are normal. There is atherosclerotic calcification of the aortic knob. The lungs show no infiltrate, effusion or pneumothorax. There is mild hyperinflation. No acute osseous abnormality is seen. There is a mild thoracic levoscoliosis. A dual-lead, dual-chamber pacemaker device is seen, without lead fracture noted. XR/XR chest 2V IMPRESSION: There is mild hyperinflation. No focal infiltrate or congestive heart failure is seen.
== END 2024-01-11 13:31 | disposition home or self-care (01) ==
LOC: HO.XRAY 13:30
PROVIDERS: PCP Internal Medicine; Visit Provider Physician Assistant
DX: R63.4 Abnormal weight loss (principal); Z87.891 Personal history of nicotine dependence; Z83.79 Family history of other diseases of the digestive system
CPT/HCPCS: 71046

== ENCOUNTER 2024-02-15 13:16 | Outpatient (AMB) | payer MEDICARE, BC, SELFPAY ==
[2024-02-15 13:49] VITALS: BP 100/60; PULSE 60; O2SAT 98; BMI 15.7
--- NOTE | 2024-02-15 13:49 | A.OFFPC_ITS ---
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 Service Required: No Accompanied by: Son Allergies No Known Allergies Allergy (Verified 02/15/24 13:50) Medication List - Last Reconciled 02/16/24 by Marbin De Los Santos MD lacosamide 100 mg PO BID levetiracetam 1,500 mg PO BEDTIME levetiracetam 750 mg PO DAILY levothyroxine 75 mcg PO DAILY Tobacco use date assessed: 11/12/23 Fall risk assessment: No Falls in past year Last assessed Fall Risk: 02/15/24 Dental Screening Dental Screen Date: 11/12/23 HPI 3mth f/u HPI Details hypothyroidism Sz disorder and cognitive decline; stable; compliant with meds [facility] Medical History Sick sinus syndrome Paroxysmal atrial fibrillation Osteoporosis Hypothyroid Seizures Depression Blindness of left eye Multiple fractures of pelvis Compression fracture of L3 vertebra Surgical History History of esophagogastroduodenoscopy (EGD) Hx of colonoscopy History of permanent cardiac pacemaker placement History of rectal polypectomy History of tonsillectomy Family History Father Pancreatic cancer Mother Alcoholism Son Celiac disease Social History Housing: House Alcohol intake: never Patient Tobacco Use Status: Never used Tobacco Current occupational status: retired Cognitive needs: No Hearing needs: No Vision needs: No Questionnaire Thrive Questionnaire Date Thrive assessed: 11/12/23 HUONG-7 AMB Questionnaire HUONG-7 Date HUONG - 7 assessed: 11/12/23 Source: Developed by Drs. Nitesh Lopez, Leila Aguilar, David Lu and colleagues, with an educational misty from [employer]. Review of Systems Const Denies chills, Denies headache(s) and Denies weight loss ENT Denies headache(s) Card Denies chest pain, Denies syncope, Denies irregular heart rhythm and Denies dyspnea Resp Denies chest congestion, Denies cough and Denies dyspnea GI Denies abdominal pain, Denies change in stool character, Denies nausea and Denies vomiting Musc Denies deformity and Denies joint swelling Neuro Denies syncope and Denies headache(s) Physical exam (Primary Care) Vital Signs: Last Vital Signs Pulse 60 02/15/24 13:49 BP 100/60 02/15/24 13:49 Pulse Ox 98 02/15/24 13:49 Oxygen Delivery Method Room Air 02/15/24 13:49 BMI result Body Mass Index 15.7 Tobacco/Smoking Status: Tobacco use Status Tobacco use date assessed 11/12/23 02/15/24 13:52 Patient Tobacco Use Status Never used Tobacco 02/15/24 13:52 Thrive Assessment: Date of Thrive Assessment Date Thrive assessed 11/12/23 02/15/24 13:52 Const General: cooperative, comfortable, no acute distress and alert Neck Neck: Yes no lymphadenopathy Thyroid: Thyroid normal Resp Effort & Inspection: normal respiratory effort Auscultation: clear to auscultation bilaterally Percussion: percussion normal Cardio Jugular venous distension: no JVD Palpation: normal PMI Rate: regular rate Rhythm: regular rhythm Heart sounds: S1 normal heart sound present and S2 normal heart sound present GI Inspection: Yes normal to inspection Palpation (GI): No hepatosplenomegaly present Skin General skin exam: no rashes or lesions noted Extrem General: Yes no clubbing, cyanosis or edema Assessment and Plan Assessment & Plan (1) Seizure: Code(s): R56.9 - Unspecified convulsions Plan: to see neuro (2) Hypothyroidism: Code(s): E03.9 - Hypothyroidism, unspecified Plan: same rx; needs labs (3) Cognitive decline: Code(s): R41.89 - Other symptoms and signs involving cognitive functions and awareness Plan: stable Orders: Orders Thyroid Stimulating Hormone 02/15/24 Z13.29 - Encounter for screening for other suspected endocrine disorder Coding Level of Care Code Est Pt Level 4 (99981) Diagnoses Seizure R56.9 Hypothyroidism E03.9 Cognitive decline R41.89
== END 2024-02-15 14:07 | disposition home or self-care (01) ==
LOC: HO.HMGH 13:47
PROVIDERS: PCP Internal Medicine; Visit Provider Internal Medicine
DX: R56.9 Unspecified convulsions (principal); E03.9 Hypothyroidism, unspecified; R41.89 Other symptoms and signs involving cognitive functions and awareness
CPT/HCPCS: 99214

== ENCOUNTER 2024-02-15 14:19 | Outpatient (REF) | payer BC, SELFPAY ==
[2024-02-15 15:59] LABS: TSH reflex Free T4 1.06 uIU/mL (0.32-4.0); Thyroid Stimulating Hormone 1.06 uIU/mL (0.32-4.0)
[2024-02-15 16:17] LABS: Appearance Urine Clear; Color Urine Yellow; Glucose Urine UA Negative (Negative); Leukocyte Esterase Urine Trace (Negative); Nitrite Urine Negative (Negative); PH 6.5 (5.0-9.0); Specific Gravity - Urine 1.025 (1.005-1.025); UMIC TRIGGER UACC YES; Urine Blood Negative (Negative); Urine Ketones Trace mg/dL (Negative); Urine Protein Negative (Neg-Trace)
[2024-02-15 16:50] LABS: Bacteria Urine None Seen (None Seen); Hyaline Casts Urine 0-2 /LPF (0-2); RBC Urine 0-2 /HPF (0-2); Squamous Epithelial Cell Urine 0-2 /HPF (0-2); WBC Urine 0-5 /HPF (0-5)
[2024-02-16 21:24] LABS: Gliadin Deamidated IgA Ab 72.3 U/mL; Gliadin Deamidated IgG Ab >250.0 U/mL; Transglutaminase IgA 109.1 U/mL
[2024-02-20 11:23] LABS: Endomysial IgA Antibody Positive (Negative)
[2024-02-20 11:43] LABS: Endomysial Titer 1:20 titer (<1:5)
== END 2024-02-15 14:20 | disposition home or self-care (01) ==
LOC: HO.LAB 14:19
PROVIDERS: Nurse Practitioner Family; Physician Assistant; PCP Internal Medicine; Visit Provider Internal Medicine
DX: Z13.29 Encounter for screening for other suspected endocrine disorder (principal); E03.9 Hypothyroidism, unspecified; R63.4 Abnormal weight loss
CPT/HCPCS: 36415; 81001; 84443; 86231; 86258; 86364

== ENCOUNTER 2024-08-16 13:09 | Outpatient (AMB) | payer MEDICARE, SELFPAY ==
[2024-08-16 13:15] VITALS: BP 98/60; PULSE 72; O2SAT 91; BMI 16.5
--- NOTE | 2024-08-16 13:15 | A.OFFPC_ITS ---
Vital Signs 08/16/24 13:15 Height 5 ft 6 in Weight 102 lb BMI 16.5 BP 98/60 Blood Pressure Location Lt brachial Position Sitting Pulse 72 Pulse Source Pulse Oximeter Pulse Oximetry (%) 91 L Oxygen Delivery Method Room Air Intake Visit Reasons: 6mth f/u Ophthalmic Pathologist Required: No Allergies No Known Allergies Allergy (Verified 08/16/24 13:17) Tobacco use date assessed: 11/12/23 Fall risk assessment: No Falls in past year Last assessed Fall Risk: 08/16/24 Dental Screening Dental Screen Date: 11/12/23 HPI 6mth f/u HPI Details hypothyroidism on rx; doing well; compliant [facility] Medical History Sick sinus syndrome Paroxysmal atrial fibrillation Osteoporosis Hypothyroid Seizures Depression Blindness of left eye Multiple fractures of pelvis Compression fracture of L3 vertebra Surgical History History of esophagogastroduodenoscopy (EGD) Hx of colonoscopy History of permanent cardiac pacemaker placement History of rectal polypectomy History of tonsillectomy Family History Father Pancreatic cancer Mother Alcoholism Son Celiac disease Social History Housing: House Alcohol intake: never Patient Tobacco Use Status: Never used Tobacco Tobacco use type: Cigarette e-Cigarette/Vaping Use: Never Used Current occupational status: retired Cognitive needs: No Hearing needs: No Vision needs: No Questionnaire Thrive Questionnaire Date Thrive assessed: 11/12/23 HUONG-7 AMB Questionnaire HUONG-7 Date HUONG - 7 assessed: 11/12/23 Source: Developed by Drs. Nitesh Lopez, Leila Aguilar, David Lu and colleagues, with an educational misty from [employer]. Review of Systems Const Denies chills, Denies headache(s) and Denies weight loss ENT Denies headache(s) Card Denies chest pain, Denies syncope, Denies irregular heart rhythm and Denies dyspnea Resp Denies chest congestion, Denies cough and Denies dyspnea GI Denies abdominal pain, Denies change in stool character, Denies nausea and Denies vomiting Musc Denies deformity and Denies joint swelling Neuro Denies syncope and Denies headache(s) Physical exam (Primary Care) Vital Signs: Last Vital Signs Pulse 72 08/16/24 13:15 BP 98/60 08/16/24 13:15 Pulse Ox 91 L 08/16/24 13:15 Oxygen Delivery Method Room Air 08/16/24 13:15 BMI result Body Mass Index 16.5 Tobacco/Smoking Status: Tobacco use Status Tobacco use date assessed 11/12/23 08/16/24 13:16 Patient Tobacco Use Status Never used Tobacco 08/16/24 13:16 Tobacco use type Cigarette 08/16/24 13:19 e-Cigarette/Vaping Use Never Used 08/16/24 13:19 Thrive Assessment: Date of Thrive Assessment Date Thrive assessed 11/12/23 08/16/24 13:16 Const General: cooperative, comfortable, no acute distress and alert Neck Neck: Yes no lymphadenopathy Thyroid: Thyroid normal Resp Effort & Inspection: normal respiratory effort Auscultation: clear to auscultation bilaterally Percussion: percussion normal Cardio Jugular venous distension: no JVD Palpation: normal PMI Rate: regular rate Rhythm: regular rhythm Heart sounds: S1 normal heart sound present and S2 normal heart sound present GI Inspection: Yes normal to inspection Palpation (GI): No hepatosplenomegaly present Skin General skin exam: no rashes or lesions noted Extrem General: Yes no clubbing, cyanosis or edema Coding Level of Care Code Est Pt Level 3 (72377) Diagnoses Hypothyroidism E03.9 Assessment & Plan Assessment & Plan (1) Hypothyroidism: Code(s): E03.9 - Hypothyroidism, unspecified Category: Medical Plan: stable; same rx
== END 2024-08-16 13:38 | disposition home or self-care (01) ==
PROVIDERS: PCP Internal Medicine; Visit Provider Internal Medicine
DX: E03.9 Hypothyroidism, unspecified (principal)

== ENCOUNTER → 2024-08-16 13:09 | Outpatient (BNVA) | payer MEDICARE, SELFPAY | PROVIDERS: PCP Internal Medicine; Visit Provider Internal Medicine | DX: E03.9 Hypothyroidism, unspecified (principal) | CPT/HCPCS: 99212 ==

== ENCOUNTER 2024-09-08 11:23 | Outpatient (REF) | payer MEDICARE, SELFPAY ==
[2024-09-08 13:04] LABS: Vitamin B12 389 pg/mL (200-900)
== END 2024-09-08 11:24 | disposition home or self-care (01) ==
LOC: HO.LAB 11:23
PROVIDERS: PCP Internal Medicine; Visit Provider Psychiatry & Neurology Neurology
DX: G31.84 Mild cognitive impairment of uncertain or unknown etiology (principal)
CPT/HCPCS: 36415; 82607

== ENCOUNTER 2025-01-24 13:17 | Outpatient (AMB) | payer MEDICARE, SELFPAY ==
--- NOTE | 2025-01-24 13:24 | MHC.PC.OV ---
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 Accompanied by: Son Allergies No Known Allergies Allergy (Verified 01/24/25 13:35) Medication List - Last Reconciled 01/24/25 by Clemencia Mcgrath MD aspirin 81 mg PO DAILY budesonide ER 9 mg PO DAILY 4 weeks clopidogrel 75 mg PO DAILY lacosamide 100 mg PO BID levetiracetam 1,500 mg PO BEDTIME levetiracetam 750 mg PO DAILY levothyroxine 75 mcg PO DAILY Tobacco use date assessed: 01/24/25 Fall risk assessment: 1 Fall in past year Last assessed Fall Risk: 01/24/25 Dental Screening Dental Screen Date: 01/24/25 Did you have a dental visit in the last 12 months?: No Did you have a dental problem in the last 6 months where you did not have access to dental care?: No Was dental information given to patient?: Patient has dentist HPI HPI Comments History of Present Illness Details The patient is a 80-year-old female presenting for follow-up management of seizure disorder and osteoporosis, and to address a dermatologic concern over her right eyebrow. The seizure disorder is well-controlled on current medications, levetiracetam and lacosamide, with no recent episodes noted. The seizure episodes were noted after unexplained alterations in consciousness followed by a neurological assessment. Hypothyroidism is maintained on levothyroxine, with regular monitoring of her thyroid hormone levels. She is malnourished with a BMI of 16.6. Past medical history is significant for severe osteoporosis, diagnosed through a densitometry test in September 2023. The patient suffered a left hip fracture in November 2024, requiring surgical intervention with a hip replacement. Pain was initially managed with analgesics post-operatively, but has since resolved, allowing the patient to mobilize without pain intervention. In the dermatologic domain, a red, pink, scaly rash has developed over the right eyebrow and has persisted and recurred over the past few months, unaltered by basic moisturizing treatments. [facility] Medical History (Updated 01/24/25 @ 13:58 by Clemencia Mcgrath MD) Sick sinus syndrome Paroxysmal atrial fibrillation Osteoporosis Hypothyroid Seizures Depression Blindness of left eye Multiple fractures of pelvis Compression fracture of L3 vertebra Surgical History History of left hip replacement History of esophagogastroduodenoscopy (EGD) Hx of colonoscopy History of permanent cardiac pacemaker placement History of rectal polypectomy History of tonsillectomy Family History Father Pancreatic cancer Mother Alcoholism Son Celiac disease Social History Housing: House Alcohol intake: never Patient Tobacco Use Status: Never used Tobacco e-Cigarette/Vaping Use: Never Used Second Hand Smoke Exposure: No service: No Current occupational status: retired Cognitive needs: Yes Hearing needs: No Vision needs: No Questionnaire PHQ-9 Over the last 2 weeks, how often have you been bothered by any of the following problems? 1. Little interest or pleasure in doing things: not at all 2. Feeling down, depressed, or hopeless: not at all 3. Trouble falling or staying asleep, or sleeping too much: not at all 4. Feeling tired or having little energy: not at all 5. Poor appetite or overeating: not at all 6. Feeling bad about yourself - or that you are a failure or have let yourself or your family down: not at all 7. Trouble concentrating on things, such as reading the newspaper or watching television: not at all 8. Moving or speaking so slowly that other people could have noticed. Or the opposite - being so fidgety or restless that you have been moving around a lot more than usual: not at all 9. Thoughts that you would be better off or of hurting yourself in some way: not at all Total score: 0 Depression Screening Interpretation: Negative Depression Screening Done: Yes 06244 - PHQ-9 Billing: Yes Source: Developed by Drs. Nitesh Lopez, Leila Aguilar, David Lu and colleagues, with an educational misty from [employer]. Thrive Questionnaire Date Thrive assessed: 01/24/25 I am a: Patient What is your living situation today?: I have a steady place to live Within the past 12 months, did the food you bought not last and you didn't have the money to get more?: Never true Within the past 12 months, did you worry whether your food would run out before you got money to buy more?: Never true Do you have trouble paying for medicines?: No Do you have trouble getting transportation to medical appointments?: No Do you have trouble paying your heating and electricity bill?: No Do you have trouble taking care of your child, family member or friend?: No Do you have trouble with day-to-day activities such as bathing, preparing meals, shopping, managing finances, etc.?: No Are you currently unemployed and looking for a job?: No Are you interested in more education?: No Please select the resources that you would like help with: None Currently or been in a relationship where the following occur: No concerns reported THRIVE Score: 0 AUDIT C Alcohol Use Questionnaire (AUDIT-C) 1. How often do you have a drink containing alcohol?: Never Total Score: 0 HUONG-7 AMB Questionnaire HUONG-7 Date HUONG - 7 assessed: 01/24/25 Feeling nervous, anxious, or on edge: 0 = Not at all Not being able to stop or control worryin = Not at all Worrying too much about different things: 0 = Not at all Trouble relaxin = Not at all Being so restless that it is hard to sit still: 0 = Not at all Becoming easily annoyed or irritable: 0 = Not at all Feeling afraid as if something awful might happen: 0 = Not at all Total HUONG-7 score (0-4 normal; 5-9 mild; 10-14 moderate; 15-21 severe): 0 Source: Developed by Drs. Nitesh Lopez, Leila Aguilar, David Lu and colleagues, with an educational misty from [employer]. HUONG-7 Assessment Billing HUONG-7 Assessment Tool: HUONG-7 Assessment 73187 Review of Systems Const All systems reviewed & are unremarkable except as noted in HPI and below Card Denies chest pain at rest, Denies chest pain with activity, Denies edema, Denies irregular heart rhythm, Denies claudication, Denies dyspnea, Denies dyspnea on exertion, Denies orthopnea, Denies paroxysmal nocturnal dyspnea and Denies slow heart rate Resp Denies cough, Denies dyspnea and Denies dyspnea on exertion GI Denies abdominal pain, Denies change in bowel habits, Denies excessive flatus, Denies nausea and Denies vomiting Physical exam (Primary Care) Vital Signs: Last Vital Signs BP 92/60 01/24/25 13:26 BMI result Body Mass Index 16.6 BMI Assessment/Plan discussion: Low Tobacco/Smoking Status: Tobacco use Status Tobacco use date assessed 01/24/25 01/24/25 13:33 Patient Tobacco Use Status Never used Tobacco 01/24/25 13:25 Tobacco use type 01/24/25 13:33 e-Cigarette/Vaping Use Never Used 01/24/25 13:25 Depression Screening Interpretation: Negative Thrive Assessment: Date of Thrive Assessment Date Thrive assessed 11/12/23 01/24/25 13:25 Currently or been in a relationship where the following occur: No concerns reported Const Limitations: ambulation with cane Resp Effort & Inspection: normal respiratory effort Auscultation: clear to auscultation bilaterally Cardio Jugular venous distension: no JVD Rate: regular rate Rhythm: regular rhythm Heart sounds: S1 normal heart sound present and S2 normal heart sound present Extrem General: Yes full ROM Coding Level of Care Code Est Pt Level 4 (29624) Complex EM visit Add On G2211 Diagnoses Seizure R56.9 Hypothyroidism E03.9 Osteoporosis M81.0 Malnourished E46 Eczema L30.9 Additional Codes PHQ-9 - 61060 - PHQ-9 Billing: Yes ([id number]) HUONG-7 Assessment Billing - HUONG-7 Assessment Tool: HUONG-7 Assessment 25258 ([id number]) Time Spent (min) 23 Assessment & Plan Assessment & Plan (1) Seizure: Code(s): R56.9 - Unspecified convulsions Category: Medical (2) Hypothyroidism: Code(s): E03.9 - Hypothyroidism, unspecified Category: Medical (3) Osteoporosis: Code(s): M81.0 - Age-related osteoporosis without current pathological fracture Category: Medical (4) Malnourished: Comment: Depression Refused mirtazapine Code(s): E46 - Unspecified protein-calorie malnutrition Category: Medical (5) Eczema: Code(s): L30.9 - Dermatitis, unspecified Category: Medical Plan The patient's seizure disorder will be managed with current medications including levetiracetam and lacosamide, given the absence of recent seizures and adjusted doses due to past weight loss. Thyroid function will be monitored with recent rise in levels, alongside ongoing levothyroxine therapy. For the suspected dermatitis, a topical steroid cream is prescribed with potential referral to dermatology if persistent. Osteoporosis management will include a follow-up densitometry test in September to assess bone status. Discussion around a potential gluten-free dietary trial was patient-directed due to family history; however, current dietary habits remain unchanged. The patient will defer pneumonia vaccination and adhere to prescribed steroid cream use for dermatologic symptoms, with instructions for follow-up care if required. Patient was informed and verbally consented to the use of an ambient scribe for clinic note documentation during this visit. I engaged in a detailed discussion with the patient regarding her current diagnoses and management strategies. We reviewed the seizure disorder management with levetiracetam and lacosamide, emphasizing the importance of monitoring medication efficacy and potential need for further adjustment should her weight change. Thyroid monitoring was recommended due to recent rising levels, supporting continued levothyroxine therapy. We discussed the skin abnormality over her eyebrow, agreeing on an initial trial of topical steroid cream with a plan for dermatology consultation if necessary. Concerning her osteoporosis, I emphasized the need for a repeat bone densitometry in September to guide subsequent treatment decisions. We addressed the potential benefits of a gluten-free diet considering her positive celiac antibodies, although she reports tolerating her current diet well. The patient opted not to receive the pneumonia vaccine at this time. Instructions for monitoring and return precautions were provided, along with anticipatory guidance for the continuation of care. Orders: Orders XR DEXA axial skeleton 8 Months Z78.0 - Asymptomatic menopausal state Lipid Panel 6 Months E78.5 - Hyperlipidemia, unspecified Complete Blood Count Auto Diff 6 Months R56.9 - Unspecified convulsions Thyroid Stimulating Hormone Today E03.9 - Hypothyroidism, unspecified Comprehensive [place]. Panel Fast 6 Months R56.9 - Unspecified convulsions Medications: New triamcinolone acetonide 0.1% 1 appl topical DAILY 2 weeks 15 grams 0RF triamcinolone acetonide 0.1% 1 appl topical DAILY 2 weeks 15 grams 0RF Patient Instructions: - Continue current seizure medications, monitoring for any changes or side effects. - Apply prescribed topical steroid cream to the rash over the right eyebrow as directed. - Attend scheduled thyroid function test today and follow up for results. - Return for repeat bone densitometry in September to assess osteoporosis management. - Monitor for changes in skin condition and call if there is no improvement. - Consider gluten-free dietary trial if interested, given family history of celiac disease. - Contact the office if experiencing any new symptoms or concerns.
[2025-01-24 13:26] VITALS: BP 92/60; BMI 16.6
== END 2025-01-24 13:53 | disposition home or self-care (01) ==
LOC: HO.HMCH 13:17
PROVIDERS: PCP Internal Medicine; Visit Provider Internal Medicine
DX: R56.9 Unspecified convulsions (principal); E03.9 Hypothyroidism, unspecified; M81.0 Age-related osteoporosis without current pathological fracture; E46 Unspecified protein-calorie malnutrition; L30.9 Dermatitis, unspecified

== ENCOUNTER 2025-01-24 13:17 | Outpatient (REF) | payer MEDICARE, SELFPAY ==
[2025-01-24 17:59] LABS: Thyroid Stimulating Hormone 1.39 uIU/mL (0.32-4.0)
== END 2025-01-24 13:18 | disposition home or self-care (01) ==
LOC: HO.LAB 13:17
PROVIDERS: PCP Internal Medicine; Visit Provider Internal Medicine
DX: R56.9 Unspecified convulsions (principal); E03.9 Hypothyroidism, unspecified; M81.0 Age-related osteoporosis without current pathological fracture; E46 Unspecified protein-calorie malnutrition; Z68.1 Body mass index [BMI] 19.9 or less, adult; L30.9 Dermatitis, unspecified; Z79.899 Other long term (current) drug therapy
CPT/HCPCS: 36415; 84443; 96127; 99212

== ENCOUNTER 2025-07-26 15:36 | Outpatient (AMB) | payer MEDICARE, SELFPAY ==
[2025-07-26 15:42] VITALS: BP 102/58; PULSE 70; O2SAT 98; BMI 16.3
--- NOTE | 2025-07-26 15:42 | MHC.PC.OV ---
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 Accompanied by: Self / Same As Patient Allergies No Known Allergies Allergy (Verified 07/26/25 16:14) Medication List - Last Reconciled 07/26/25 by Clemencia Mcgrath MD aspirin 81 mg PO DAILY budesonide ER 9 mg PO DAILY 4 weeks clopidogrel 75 mg PO DAILY lacosamide 100 mg PO BID levetiracetam 1,500 mg PO BEDTIME levetiracetam 750 mg PO DAILY levothyroxine 75 mcg PO DAILY triamcinolone acetonide 0.1% 1 appl topical DAILY 2 weeks Tobacco use date assessed: 01/24/25 Fall risk assessment: No Falls in past year Last assessed Fall Risk: 07/26/25 Dental Screening Dental Screen Date: 01/24/25 HPI HPI Comments History of Present Illness Details The patient is a 80-year-old female presenting with management of atrial fibrillation, celiac disease, hair loss, and visual impairment as well as hypothyroidism. Atrial fibrillation was identified as a past condition, and the patient has a Watchman device implanted as a preventative measure against stroke. She is on aspirin therapy, which she assumes is lifelong, and has a [employer] dual chamber pacemaker in place. The patient has not experienced any recent cardiac symptoms and has been stable with her heart condition. Celiac disease was diagnosed through positive antibodies and endoscopy, although the patient reports no gastrointestinal symptoms. She has been advised to follow a gluten-free diet, which resolved her anemia without the need for transfusions or supplements. The patient reports hair loss, which she attributes to possible thyroid issues, and has been advised to consider Nutrafol as a treatment option. 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 The patient has never consulted an artisan plasterer for these issues and has been referred for an eye examination to prevent further deterioration of vision. [facility] Medical History (Updated 07/26/25 @ 16:34 by Clemencia Mcgrath MD) Sick sinus syndrome Paroxysmal atrial fibrillation Osteoporosis Hypothyroid Seizures Depression Blindness of left eye Multiple fractures of pelvis Compression fracture of L3 vertebra Surgical History History of left hip replacement History of esophagogastroduodenoscopy (EGD) Hx of colonoscopy History of permanent cardiac pacemaker placement History of rectal polypectomy History of tonsillectomy Family History Father Pancreatic cancer Mother Alcoholism Son Celiac disease Social History Housing: House Alcohol intake: never Patient Tobacco Use Status: Never used Tobacco Tobacco use type: Cigarette e-Cigarette/Vaping Use: Never Used Second Hand Smoke Exposure: No service: No Current occupational status: retired Cognitive needs: Yes Hearing needs: No Vision needs: No Questionnaire PHQ-9 Over the last 2 weeks, how often have you been bothered by any of the following problems? 1. Little interest or pleasure in doing things: not at all 2. Feeling down, depressed, or hopeless: not at all 3. Trouble falling or staying asleep, or sleeping too much: not at all 4. Feeling tired or having little energy: not at all 5. Poor appetite or overeating: not at all 6. Feeling bad about yourself - or that you are a failure or have let yourself or your family down: not at all 7. Trouble concentrating on things, such as reading the newspaper or watching television: not at all 8. Moving or speaking so slowly that other people could have noticed. Or the opposite - being so fidgety or restless that you have been moving around a lot more than usual: not at all 9. Thoughts that you would be better off or of hurting yourself in some way: not at all Total score: 0 Depression Screening Interpretation: Negative Depression Screening Done: Yes 01498 - PHQ-9 Billing: Yes Source: Developed by Drs. Nitesh Lopez, Leila Aguilar, David Lu and colleagues, with an educational misty from [employer]. Thrive Questionnaire Date Thrive assessed: 01/24/25 I am a: Patient What is your living situation today?: I have a steady place to live Within the past 12 months, did the food you bought not last and you didn't have the money to get more?: Never true Within the past 12 months, did you worry whether your food would run out before you got money to buy more?: Never true Do you have trouble paying for medicines?: No Do you have trouble getting transportation to medical appointments?: No Do you have trouble paying your heating and electricity bill?: No Do you have trouble taking care of your child, family member or friend?: No Do you have trouble with day-to-day activities such as bathing, preparing meals, shopping, managing finances, etc.?: No Are you currently unemployed and looking for a job?: No Are you interested in more education?: No Please select the resources that you would like help with: None Currently or been in a relationship where the following occur: No concerns reported THRIVE Score: 0 AUDIT C Alcohol Use Questionnaire (AUDIT-C) 1. How often do you have a drink containing alcohol?: Never 3. How often do you have six or more drinks on one occasion?: Never Total Score: 0 Score Reviewed/Action Taken: No HUONG-7 AMB Questionnaire HUONG-7 Date HUONG - 7 assessed: 01/24/25 Feeling nervous, anxious, or on edge: 0 = Not at all Not being able to stop or control worryin = Not at all Worrying too much about different things: 0 = Not at all Trouble relaxin = Not at all Being so restless that it is hard to sit still: 0 = Not at all Becoming easily annoyed or irritable: 0 = Not at all Feeling afraid as if something awful might happen: 0 = Not at all Total HUONG-7 score (0-4 normal; 5-9 mild; 10-14 moderate; 15-21 severe): 0 Source: Developed by Drs. Nitesh Lopez, Leila Aguilar, David Lu and colleagues, with an educational misty from [employer]. HUONG-7 Assessment Billing HUONG-7 Assessment Tool: HUONG-7 Assessment 83769 Review of Systems Const All systems reviewed & are unremarkable except as noted in HPI and below Card Denies chest pain at rest, Denies chest pain with activity, Denies edema, Denies irregular heart rhythm, Denies claudication, Denies dyspnea, Denies dyspnea on exertion, Denies orthopnea, Denies paroxysmal nocturnal dyspnea and Denies slow heart rate Resp Denies cough, Denies dyspnea and Denies dyspnea on exertion Physical exam (Primary Care) Vital Signs: Last Vital Signs Pulse 70 07/26/25 15:42 BP 102/58 L 07/26/25 15:42 Pulse Ox 98 07/26/25 15:42 Oxygen Delivery Method Room Air 07/26/25 15:42 BMI result Body Mass Index 16.3 Tobacco/Smoking Status: Tobacco use Status Tobacco use date assessed 01/24/25 07/26/25 15:44 Patient Tobacco Use Status Never used Tobacco 07/26/25 15:44 Tobacco use type Cigarette 07/26/25 15:52 e-Cigarette/Vaping Use Never Used 07/26/25 15:44 PHQ-9: PHQ-9 Score PHQ-9: Total score 0 07/26/25 16:19 Depression Screening Interpretation: Negative Thrive Assessment: Date of Thrive Assessment Date Thrive assessed 01/24/25 07/26/25 15:44 Currently or been in a relationship where the following occur: No concerns reported Resp Effort & Inspection: normal respiratory effort Auscultation: clear to auscultation bilaterally Cardio Jugular venous distension: no JVD Rate: regular rate Rhythm: regular rhythm Heart sounds: S1 normal heart sound present and S2 normal heart sound present Extrem General: Yes full ROM Coding Level of Care Code Est Pt Level 4 (77471) Complex EM visit Add On G2211 Diagnoses Hypothyroidism E03.9 Blurry vision, right eye H53.8 Celiac disease K90.0 Seizure R56.9 Additional Codes HUONG-7 Assessment Billing - HUONG-7 Assessment Tool: HUONG-7 Assessment 06964 ([id number]) PHQ-9 - 43778 - PHQ-9 Billing: Yes ([id number]) Time Spent (min) 24 Assessment & Plan Assessment & Plan (1) Hypothyroidism: Code(s): E03.9 - Hypothyroidism, unspecified Category: Medical (2) Blurry vision, right eye: Code(s): H53.8 - Other visual disturbances Category: Medical (3) Celiac disease: Code(s): K90.0 - Celiac disease Category: Medical (4) Seizure: Code(s): R56.9 - Unspecified convulsions Category: Medical Plan Plan Patient was informed and verbally consented to the use of an ambient scribe for clinic note documentation during this visit. 1. Atrial Fibrillation The patient is advised to continue aspirin therapy as a preventative measure against thromboembolic events due to atrial fibrillation. Regular follow-up with cardiology is recommended to monitor the function of the Watchman device and pacemaker. 2. Celiac Disease The patient is advised to adhere to a strict gluten-free diet to manage celiac disease and prevent anemia recurrence. 3. Hair Loss Consideration of Nutrafol supplementation is suggested for hair loss, and thyroid function will be re-evaluated to rule out any contributing factors. 4. Visual Impairment Referral to an artisan plasterer is made to assess and manage the visual impairment, particularly in the right eye, to prevent further vision loss. Orders: Orders Thyroid Stimulating Hormone Today E03.9 - Hypothyroidism, unspecified Referrals Ophthalmology Referral H53.8 - Other visual disturbances
== END 2025-07-26 16:37 | disposition home or self-care (01) ==
LOC: HO.HMCH 15:37
PROVIDERS: PCP Internal Medicine; Visit Provider Internal Medicine
DX: E03.9 Hypothyroidism, unspecified (principal); H53.8 Other visual disturbances; K90.0 Celiac disease; R56.9 Unspecified convulsions

== ENCOUNTER 2025-07-26 15:36 | Outpatient (REF) | payer MEDICARE, SELFPAY ==
[2025-07-26 17:02] LABS: MANUAL DIFF FLAG NO
[2025-07-26 17:19] LABS: Hematocrit 41.2 % (37.0-47.0); Hemoglobin 13.8 g/dl (12.0-16.0); Imm Gran Abs Auto 0.01 X10*3/uL (0.00-0.03); Imm Gran Pct Auto 0.1 % (0.0-0.4); Lymphocytes Absolute Auto 1.8 X10*3/uL (1.2-4.9); Mean Corpuscular HGB Conc 33.5 g/dl (31.0-35.0); Mean Corpuscular Hemoglobin 32.2 pg (27.0-33.0); Mean Corpuscular Volume 96.0 fL (80.0-98.0); NRBC Abs Auto 0.000 X10*3/uL (0.0-0.012); NRBC Pct Auto 0.0 /100WBC (0.0-0.2); Platelet Count 427 X10*3/uL (160-400); Red Blood Count 4.29 X10*6/uL (4.20-5.50); White Blood Count 7.3 X10*3/uL (4.8-10.8)
[2025-07-26 17:41] LABS: Alanine Aminotransferase 29 U/L (0-31); Albumin Level 4.3 g/dL (3.5-5.0); Alkaline Phosphatase 106 U/L (39-117); Anion Gap 11 (12-20); Aspartate Amino Transferase 28 U/L (5-31); Blood Urea Nitrogen 14 mg/dL (9-16); Calcium 9.2 mg/dL (8.4-10.2); Carbon Dioxide 30 mmol/L (22-29); Chloride 102 mmol/L (96-108); Cholesterol 218 mg/dL (<200); Estimated Glomerular Filt Rate > 60; HDL Cholesterol 52 mg/dL (>40); Potassium 4.0 mmol/L (3.3-5.1); Sodium 139 mmol/L (135-145); Total Protein 7.4 g/dL (6.5-8.0); Triglycerides 101 mg/dL (<150)
[2025-07-26 17:57] LABS: Thyroid Stimulating Hormone 3.00 uIU/mL (0.32-4.0)
== END 2025-07-26 15:37 | disposition home or self-care (01) ==
LOC: HO.LAB 15:36
PROVIDERS: PCP Internal Medicine; Visit Provider Internal Medicine
DX: E03.9 Hypothyroidism, unspecified (principal); H53.8 Other visual disturbances; K90.0 Celiac disease; R56.9 Unspecified convulsions; E78.5 Hyperlipidemia, unspecified
CPT/HCPCS: 36415; 80053; 80061; 84443; 85025; 96127; 99212

== ENCOUNTER 2025-08-30 13:15 | Outpatient (AMB) | payer MEDICARE, SELFPAY ==
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
== END 2025-08-30 13:29 | disposition home or self-care (01) ==
LOC: HO.HSM 13:15
PROVIDERS: PCP Internal Medicine; Visit Provider Psychiatry & Neurology Neurology
DX: G40.209 Localization-related (focal) (partial) symptomatic epilepsy and epileptic syndromes with complex partial seizures, not intractable, without status epilepticus (principal); G31.84 Mild cognitive impairment of uncertain or unknown etiology
CPT/HCPCS: 99214

== ENCOUNTER → 2025-08-30 13:15 | Outpatient (BNVA) | payer MEDICARE, SELFPAY | PROVIDERS: PCP Internal Medicine; Visit Provider Psychiatry & Neurology Neurology | DX: G40.209 Localization-related (focal) (partial) symptomatic epilepsy and epileptic syndromes with complex partial seizures, not intractable, without status epilepticus (principal); G31.84 Mild cognitive impairment of uncertain or unknown etiology | CPT/HCPCS: 99212 ==

== ENCOUNTER 2025-10-24 14:13 | Outpatient (REF) | payer MEDICARE, SELFPAY ==
--- NOTE | ~2025-10-24 | MM_ITS ---
EXAMINATION: DXA BONE DENSITY AXIAL HISTORY: Z78.0 - Asymptomatic menopausal state TECHNIQUE: [employer] Dual energy absorptiometry (DEXA) of the lumbar spine, total right hip, and femoral neck was performed. COMPARISON: Comparison is made with the prior examinations dated 10/21/2023 and 12/24/2007. FINDINGS: The bone mineral density of the lumbar spine is 0.634 g/cm2, corresponding to a T-score of -4.5, and a Z-score of -2.0. This is indicative of osteoporosis. This represents a BMD change of 4.1% compared to the prior exam. This is not statistically significant. The bone mineral density of the right total hip is 0.393 g/cm2, corresponding to a T-score of -4.9, and a Z-score of -2.5. This is indicative of osteoporosis. This represents a BMD change of -42.4% compared to the prior exam. This is statistically significant. The bone mineral density of the right femoral neck is 0.530 g/cm2, corresponding to a T-score of -3.7, and a Z-score of -1.1. This is indicative of osteoporosis. This represents a BMD change of -23.3% compared to the prior exam. MM/XR DEXA axial skeleton IMPRESSION: Based on bone mineral density, and according to World Health Organization (WHO) criteria, the diagnosis is consistent with osteoporosis. Statistically, 68% of repeat scans fall within 1 SD (+/- 0.010 g/cm2 for AP spine L1-L4) and 1 SD (+/- 0.012 g/cm2 for femur total) FRAX is a trademark of the [employer] [facility] [employer], a World Health Organization (WHO) Collaborating Center. Electronically signed by: Nitesh Whitney MD 10/24/2025 02:54 PM EST
== END 2025-10-24 14:14 | disposition home or self-care (01) ==
LOC: HO.MAMMO 14:13
PROVIDERS: PCP Internal Medicine; Visit Provider Internal Medicine
DX: Z78.0 Asymptomatic menopausal state (principal)
CPT/HCPCS: 77080

== ENCOUNTER → 2025-10-24 14:30 | Outpatient (BNV) | payer MEDICARE, SELFPAY | PROVIDERS: PCP Internal Medicine; Visit Provider Radiology Diagnostic Radiology | DX: E28.39 Other primary ovarian failure (principal) | CPT/HCPCS: 77080 ==